=== PATIENT | male | born 2000 | race Asian ===

== ENCOUNTER 2018-02-23 10:36 | Emergency (ER) | payer SELFPAY ==
[~2018-02-23] VITALS: Ht 167.6 cm; Wt 59.1 kg
[2018-02-23] MEDS ORDERED: OxyCODONE HCL/ACETAMINOPHEN 5-325 MG TABLET PO ONE (11:30)
[2018-02-23] MEDS ORDERED: KETOROLAC TROMETHAMINE 60 MG/2 ML VIAL IM ONE (11:30)
[2018-02-23 11:51] VITALS: BP 117/72
== END 2018-02-23 12:04 | disposition home or self-care (01) ==
LOC: EMS 10:36
DX: K08.89 Other specified disorders of teeth and supporting structures (principal); F12.90 Cannabis use, unspecified, uncomplicated; F17.210 Nicotine dependence, cigarettes, uncomplicated
CPT/HCPCS: 96372; 99283; J1885